=== PATIENT | female | born 1985 | race Caucasian/White ===

== ENCOUNTER 2017-09-01 11:54 | Inpatient (IN) | payer MEDICAID ==
[2017-09-01 12:56] LABS: ADD MAN DIFF? NO
[2017-09-01 12:58] LABS: WHITE BLOOD COUNT 6.5 10^3/ul (4.8-10.8)
[2017-09-01 12:58] LABS: ABNORMAL IP MESSAGE 1; BASOPHILS % 0.6 % (0.0-2.0); HEMATOCRIT 23.8 % (37.0-47.0); HEMOGLOBIN 7.7 g/dl (12.0-16.0); LYMPHOCYTES # 0.5 10^3/ul (0.8-2.9); LYMPHOCYTES % 7.4 % (15.0-51.0); MEAN CORPUSCULAR HEMOGLOBIN 27.7 pg (29.0-33.0); MEAN CORPUSCULAR HGB CONC 32.4 g/dl (32.0-37.0); MEAN CORPUSCULAR VOLUME 85.6 fl (82.0-101.0); MEAN PLATELET VOLUME 10.2 fl (7.4-10.4); MONOCYTE # 0.4 10^3/ul (0.3-0.9); NEUTROPHIL # 5.6 10^3/ul (1.6-7.5); NEUTROPHILS % 85.8 % (39.0-77.0); PLATELET COUNT 31 10^3/UL (140-415); RED BLOOD COUNT 2.78 10^6/ul (4.20-5.40); RED CELL DISTRIBUTION WIDTH 15.5 % (11.5-14.5)
[2017-09-01 13:03] LABS: POSITIVE DIFF @See below
[2017-09-01 13:12] LABS: PROTIME 16.4 Sec (11.9-14.9); PT RATIO 1.3
[2017-09-01] MEDS: morphine 10 MG INJ IV (13:12)
[2017-09-01] MEDS: ONDANSETRON 4 MG INJ IV (13:12)
[2017-09-01 13:13] LABS: PARTIAL THROMBOPLASTIN TIME 32.5 Sec (25.0-35.0)
[2017-09-01] MEDS: SOD CHLORIDE 0.9% 1,000 ML IV (13:13)
[2017-09-01] MEDS: FAMOTIDINE 20 MG INJ IV (13:17)
[2017-09-01 13:18] LABS: ALANINE AMINOTRANSFERASE 60 IU/L (13-69); ALBUMIN 4.3 g/dl (3.3-4.9); ALBUMIN/GLOBULIN RATIO 1.53; ALKALINE PHOSPHATASE 162 IU/L (42-121); ANION GAP 22 (8-16); ASPARTATE AMINO TRANSFERASE 104 IU/L (15-46); BILIRUBIN,INDIRECT 1.4 mg/dl (0-1.1); BILIRUBIN,TOTAL 1.4 mg/dl (0.2-1.3); BLOOD UREA NITROGEN 15 mg/dl (7-20); CALCIUM 8.5 mg/dl (8.4-10.2); CARBON DIOXIDE 26 mmol/L (21-31); CHLORIDE 92 mmol/L (97-110); CREATININE 0.43 mg/dl (0.44-1.00); GLUCOSE 92 mg/dl (70-220); POTASSIUM 3.7 mmol/L (3.5-5.1); SODIUM 136 mmol/L (135-144); TOTAL PROTEIN 7.1 g/dl (6.1-8.1)
[2017-09-01 13:27] LABS: TROPONIN-I < 0.012 ng/ml (0.00-0.12)
[2017-09-01] MEDS ORDERED: LIDOCAINE/MYLANTA 40 ML BTL PO (13:30)
[2017-09-01] MEDS ORDERED: METOCLOPRAMIDE 10 MG INJ IV (13:30)
[2017-09-01] MEDS: LORAZEPAM 2 MG INJ IV ×4 (13:52→22:25)
[2017-09-01] MEDS: SOD CHLORIDE 0.9% 250 ML IV (14:13)
[2017-09-01 14:59] LABS: IMMEDIATE SPIN CROSSMATCH 1 3
[2017-09-01] MEDS: ACETAMINOPHEN 325 MG TAB PO (15:19)
[2017-09-01] MEDS: PANTOPRAZOLE 40 MG INJ IV (15:21)
[2017-09-01] MEDS ORDERED: ONDANSETRON 4 MG INJ IV ×2 (15:30→16:00)
[2017-09-01 16:02] LABS: ADD UMIC YES; UR ASCORBIC ACID NEGATIVE (NEGATIVE); UR BILIRUBIN (Dip) 1+ mg/dL (NEGATIVE); UR BLOOD (Dip) NEGATIVE (NEGATIVE); UR CLARITY CLEAR (CLEAR); UR COLOR AMBER (YELLOW); UR GLUCOSE (Dip) NEGATIVE (NEGATIVE); UR KETONES (Dip) 1+ mg/dL (NEGATIVE); UR LEUKOCYTE ESTERASE (Dip) NEGATIVE Leu/ul (NEGATIVE); UR MUCUS MANY /HPF (NONE SEEN); UR NITRITE (Dip) NEGATIVE (NEGATIVE); UR RBC 2 /HPF (0-5); UR SPECIFIC GRAVITY (Dip) 1.027 (1.003-1.030); UR SQUAMOUS EPITHELIAL CELL FEW /HPF (FEW); UR TOTAL PROTEIN (Dip) 2+ mg/dl (NEGATIVE); UR UROBILINOGEN (Dip) 2+ mg/dL (NEGATIVE); UR WBC 4 /HPF (0-5)
[2017-09-01 16:25] LABS: CANNABINOIDS Negative (NEGATIVE)
[2017-09-01 16:36] LABS: AMPHETAMINE/METHAMPHETAMINE Negative (NEGATIVE); BARBITURATES Negative (NEGATIVE); BENZODIAZEPINES Negative (NEGATIVE); COCAINE Negative (NEGATIVE); OPIATES Positive (NEGATIVE)
[2017-09-01] MEDS: SOD CHLORIDE 0.9% 250 ML IV* (18:23)
[2017-09-01 18:29] LABS: HEMATOCRIT 22.7 % (37.0-47.0); HEMOGLOBIN 7.6 g/dl (12.0-16.0)
[2017-09-01] MEDS: CHLORDIAZEPOXIDE 25 MG CAP PO (22:25)
[2017-09-01] MEDS: PANTOPRAZOLE IV 80 MG in SOD CHLORIDE 0.9% 100 ML IV (22:42)
[2017-09-02] MEDS: traMADol 50 MG TAB PO (00:08)
[2017-09-02 00:50] LABS: HEMATOCRIT 24.7 % (37.0-47.0); HEMOGLOBIN 8.6 g/dl (12.0-16.0)
[2017-09-02] MEDS: FUROSEMIDE 20 MG INJ IV (01:27)
[2017-09-02] MEDS: PANTOPRAZOLE IV 80 MG in SOD CHLORIDE 0.9% 100 ML IV ×2 (01:30→13:16)
[2017-09-02] MEDS: LORAZEPAM 2 MG INJ IV ×6 (02:24→21:03)
[2017-09-02] MEDS: THIAMINE 100 MG TAB PO (08:43)
[2017-09-02] MEDS: VITAMIN B COMPLEX/VIT C CAP PO (08:43)
[2017-09-02] MEDS: CHLORDIAZEPOXIDE 25 MG CAP PO ×3 (08:43→20:56)
[2017-09-02] MEDS: morphine 2 MG INJ IV ×3 (10:45→20:04)
[2017-09-02 11:58] LABS: WHITE BLOOD COUNT 3.7 10^3/ul (4.8-10.8)
[2017-09-02 11:58] LABS: ABNORMAL IP MESSAGE 1; HEMATOCRIT 29.8 % (37.0-47.0); HEMOGLOBIN 10.1 g/dl (12.0-16.0); MEAN CORPUSCULAR HEMOGLOBIN 28.9 pg (29.0-33.0); MEAN CORPUSCULAR HGB CONC 33.9 g/dl (32.0-37.0); MEAN CORPUSCULAR VOLUME 85.4 fl (82.0-101.0); MEAN PLATELET VOLUME 11.9 fl (7.4-10.4); RED BLOOD COUNT 3.49 10^6/ul (4.20-5.40); RED CELL DISTRIBUTION WIDTH 14.6 % (11.5-14.5)
[2017-09-02 12:12] LABS: ADD MAN DIFF? YES; POSITIVE DIFF @See below
[2017-09-02 12:27] LABS: INR 1.28; PROTIME 16.2 Sec (11.9-14.9); PT RATIO 1.3
[2017-09-02 12:28] LABS: PARTIAL THROMBOPLASTIN TIME 31.3 Sec (25.0-35.0)
[2017-09-02 12:29] LABS: IRON 116 ug/dl (35-150)
[2017-09-02 12:29] LABS: AMMONIA 32 umol/l (9-30)
[2017-09-02 12:31] LABS: ALANINE AMINOTRANSFERASE 53 IU/L (13-69); ALBUMIN 3.3 g/dl (3.3-4.9); ALBUMIN/GLOBULIN RATIO 1.17; ALKALINE PHOSPHATASE 142 IU/L (42-121); ANION GAP 10 (8-16); ASPARTATE AMINO TRANSFERASE 114 IU/L (15-46); BILIRUBIN,INDIRECT 1.5 mg/dl (0-1.1); BILIRUBIN,TOTAL 1.5 mg/dl (0.2-1.3); BLOOD UREA NITROGEN 10 mg/dl (7-20); CALCIUM 8.5 mg/dl (8.4-10.2); CARBON DIOXIDE 29 mmol/L (21-31); CHLORIDE 99 mmol/L (97-110); CREATININE 0.64 mg/dl (0.44-1.00); GLUCOSE 95 mg/dl (70-220); POTASSIUM 3.4 mmol/L (3.5-5.1); SODIUM 135 mmol/L (135-144); TOTAL PROTEIN 6.1 g/dl (6.1-8.1)
[2017-09-02 12:32] LABS: MAGNESIUM 1.4 mg/dl (1.7-2.5)
[2017-09-02 12:32] LABS: PHOSPHORUS 3.6 mg/dl (2.5-4.9)
[2017-09-02 12:39] LABS: % IRON SATURATION 35 % SAT (22-52); TOTAL IRON BINDING CAPACITY 328 ug/dl (241-421)
[2017-09-02 12:53] LABS: ANISOCYTOSIS 2+ (0-0); BAND NEUTROPHILS #M 0.4 10^3/ul (0.0-0.6); BAND NEUTROPHILS % (M) 11 % (0-4); EOSINOPHILS % (M) 3 % (0-7); HYPOCHROMASIA 1+ (0-0); LYMPHOCYTES #M 0.5 10^3/ul (0.8-2.9); LYMPHOCYTES % (M) 16 % (15-51); MICROCYTOSIS 1+ (0-0); MONOCYTES % (M) 2 % (0-11); OVALOCYTES 1+ (0-0); PLATELET ESTIMATE DECREASED; POLYCHROMASIA 2+ (0-0); REACTIVE LYMPHOCYTES% (M) 1 % (0-0); ROULEAU 1+ (0-0); SEG NEUT #M 2.4 10^3/ul (1.7-7.5); SEGMENTED NEUTROPHILS (M) % 64 % (39-77); SMUDGE%M 4 % (0-0)
[2017-09-02 12:57] LABS: PLATELET COUNT 21 10^3/UL (140-415)
[2017-09-02 13:05] LABS: FERRITIN 30.3 ng/ml (6.2-137.0)
[2017-09-02] MEDS: POTASSIUM CHLORIDE 30 MEQ in DEXTROSE 5% 250 ML IVPB (15:01)
[2017-09-02] MEDS: MAGNESIUM SULFATE 3 GM in DEXTROSE 5% 100 ML IVPB (16:27)
[2017-09-02] MEDS: MIDAZOLAM 1 MG/ML 2 ML INJ (18:52)
[2017-09-02] MEDS: PROPOFOL 20 ML (18:52)
[2017-09-02] MEDS: LIDOCAINE 2% (SDV) 5 ML INJ (18:53)
[2017-09-02] MEDS: METOCLOPRAMIDE 10 MG TAB PO (19:00)
[2017-09-03] MEDS: PANTOPRAZOLE IV 80 MG in SOD CHLORIDE 0.9% 100 ML IV ×3 (00:44→17:30)
[2017-09-03] MEDS: morphine 4 MG/ML VIAL IV ×6 (00:44→19:48)
[2017-09-03 01:14] LABS: TYPE AND SCREEN 1
[2017-09-03] MEDS: LORAZEPAM 2 MG INJ IV ×6 (01:45→22:31)
[2017-09-03] MEDS: OCTREOTIDE 1 MG in DEXTROSE 5% 95 ML IV ×2 (03:10→17:56)
[2017-09-03] MEDS: METOCLOPRAMIDE 10 MG TAB PO ×4 (06:26→17:57)
[2017-09-03] MEDS: CHLORDIAZEPOXIDE 25 MG CAP PO ×2 (08:29→12:33)
[2017-09-03] MEDS: THIAMINE 100 MG TAB PO (08:29)
[2017-09-03 09:07] LABS: PATH REVIEW CH
[2017-09-03 09:19] LABS: ABNORMAL IP MESSAGE 1; HEMATOCRIT 29.8 % (37.0-47.0); HEMOGLOBIN 9.9 g/dl (12.0-16.0); MEAN CORPUSCULAR HEMOGLOBIN 29.3 pg (29.0-33.0); MEAN CORPUSCULAR HGB CONC 33.2 g/dl (32.0-37.0); MEAN CORPUSCULAR VOLUME 88.2 fl (82.0-101.0); MEAN PLATELET VOLUME 11.9 fl (7.4-10.4); PLATELET COUNT 40 10^3/UL (140-415); RED BLOOD COUNT 3.38 10^6/ul (4.20-5.40)
[2017-09-03 09:19] LABS: WHITE BLOOD COUNT 3.3 10^3/ul (4.8-10.8)
[2017-09-03 09:25] LABS: ADD MAN DIFF? YES; POSITIVE DIFF @See below
[2017-09-03 09:42] LABS: MAGNESIUM 1.9 mg/dl (1.7-2.5)
[2017-09-03 09:44] LABS: ALANINE AMINOTRANSFERASE 54 IU/L (13-69); ALBUMIN 3.3 g/dl (3.3-4.9); ALBUMIN/GLOBULIN RATIO 1.22; ALKALINE PHOSPHATASE 124 IU/L (42-121); ANION GAP 15 (8-16); ASPARTATE AMINO TRANSFERASE 99 IU/L (15-46); BILIRUBIN,INDIRECT 1.1 mg/dl (0-1.1); BILIRUBIN,TOTAL 1.1 mg/dl (0.2-1.3); BLOOD UREA NITROGEN 4 mg/dl (7-20); CALCIUM 8.1 mg/dl (8.4-10.2); CARBON DIOXIDE 26 mmol/L (21-31); CHLORIDE 100 mmol/L (97-110); CREATININE 0.52 mg/dl (0.44-1.00); GLUCOSE 124 mg/dl (70-220); SODIUM 137 mmol/L (135-144)
[2017-09-03] MEDS: VITAMIN B COMPLEX/VIT C CAP PO (10:10)
[2017-09-03 10:25] LABS: ANISOCYTOSIS 2+ (0-0); BAND NEUTROPHILS #M 0.2 10^3/ul (0.0-0.6); BAND NEUTROPHILS % (M) 7 % (0-4); BASOPHILS % (M) 2 % (0-2); EOSINOPHILS % (M) 3 % (0-7); ERYTHROBLAST% (NRBC) (M) 1 % (0-0); HYPOCHROMASIA 1+ (0-0); LYMPHOCYTES #M 0.9 10^3/ul (0.8-2.9); LYMPHOCYTES % (M) 28 % (15-51); MICROCYTOSIS 2+ (0-0); MONOCYTES % (M) 1 % (0-11); PLATELET ESTIMATE SIG DECREASED; POLYCHROMASIA 1+ (0-0); SEGMENTED NEUTROPHILS (M) % 59 % (39-77); SMUDGE%M 2 % (0-0)
[2017-09-03 15:15] LABS: HEMATOCRIT 30.7 % (37.0-47.0); HEMOGLOBIN 10.2 g/dl (12.0-16.0)
[2017-09-03 19:06] LABS: HEMATOCRIT 29.5 % (37.0-47.0); HEMOGLOBIN 9.9 g/dl (12.0-16.0)
[2017-09-03] MEDS: CHLORDIAZEPOXIDE 5 MG CAP PO (20:29)
[2017-09-04] MEDS: METOCLOPRAMIDE 10 MG TAB PO ×2 (00:17→05:09)
[2017-09-04] MEDS: PANTOPRAZOLE IV 80 MG in SOD CHLORIDE 0.9% 100 ML IV (00:17)
[2017-09-04 01:22] LABS: HEMATOCRIT 30.2 % (37.0-47.0); HEMOGLOBIN 9.8 g/dl (12.0-16.0)
[2017-09-04] MEDS: morphine 4 MG/ML VIAL IV (05:10)
[2017-09-04] MEDS: VITAMIN B COMPLEX/VIT C CAP PO (08:40)
[2017-09-04] MEDS: THIAMINE 100 MG TAB PO (08:40)
[2017-09-04] MEDS: CHLORDIAZEPOXIDE 5 MG CAP PO (08:40)
[2017-09-04] MEDS: LORAZEPAM 2 MG INJ IV (08:41)
[2017-09-04] MEDS: INFLUENZA VIRUS VACCINE 0.5 ML (DISPENSING) IM* (08:45)
[2017-09-04 08:54] LABS: ADD MAN DIFF? NO
[2017-09-04 09:05] LABS: WHITE BLOOD COUNT 4.1 10^3/ul (4.8-10.8)
[2017-09-04 09:05] LABS: ABNORMAL IP MESSAGE 1; BASOPHILS % 0.7 % (0.0-2.0); EOSINOPHILS # 0.1 10^3/ul (0.0-0.5); HEMATOCRIT 33.2 % (37.0-47.0); HEMOGLOBIN 10.7 g/dl (12.0-16.0); LYMPHOCYTES # 0.6 10^3/ul (0.8-2.9); LYMPHOCYTES % 13.8 % (15.0-51.0); MEAN CORPUSCULAR HGB CONC 32.2 g/dl (32.0-37.0); MONOCYTE # 0.2 10^3/ul (0.3-0.9); MONOCYTES % 5.2 % (0.0-11.0); NEUTROPHIL # 3.1 10^3/ul (1.6-7.5); NEUTROPHILS % 77.1 % (39.0-77.0); PLATELET COUNT 52 10^3/UL (140-415); RED BLOOD COUNT 3.69 10^6/ul (4.20-5.40); RED CELL DISTRIBUTION WIDTH 14.9 % (11.5-14.5)
[2017-09-04 09:20] LABS: POSITIVE DIFF @See below
[2017-09-04 09:29] LABS: ALANINE AMINOTRANSFERASE 60 IU/L (13-69); ALBUMIN 3.6 g/dl (3.3-4.9); ALBUMIN/GLOBULIN RATIO 1.28; ALKALINE PHOSPHATASE 114 IU/L (42-121); ANION GAP 14 (8-16); ASPARTATE AMINO TRANSFERASE 115 IU/L (15-46); BILIRUBIN,INDIRECT 0.8 mg/dl (0-1.1); BILIRUBIN,TOTAL 0.8 mg/dl (0.2-1.3); BLOOD UREA NITROGEN 7 mg/dl (7-20); CALCIUM 8.2 mg/dl (8.4-10.2); CARBON DIOXIDE 27 mmol/L (21-31); CHLORIDE 102 mmol/L (97-110); CREATININE 0.62 mg/dl (0.44-1.00); GLUCOSE 109 mg/dl (70-220); POTASSIUM 4.4 mmol/L (3.5-5.1); SODIUM 139 mmol/L (135-144); TOTAL PROTEIN 6.4 g/dl (6.1-8.1)
[2017-09-04 09:31] LABS: PHOSPHORUS 3.9 mg/dl (2.5-4.9)
[2017-09-04 09:31] LABS: MAGNESIUM 1.6 mg/dl (1.7-2.5)
== END 2017-09-04 11:00 | disposition home or self-care (01) | DRG 369 ==
LOC: MS4 09-03 00:32 → E/R 11:54 → PP2 15:09
PROC: 06L38CZ Occlusion of Esophageal Vein with Extraluminal Device, Via Natural or Artificial Opening Endoscopic (ICD-10-PCS; principal; 2017-09-02 17:50)
PROC: 30233R1 Transfusion of Nonautologous Platelets into Peripheral Vein, Percutaneous Approach (ICD-10-PCS; 2017-09-02 17:50)
PROC: 30233N1 Transfusion of Nonautologous Red Blood Cells into Peripheral Vein, Percutaneous Approach (ICD-10-PCS; 2017-09-02 17:50)
DX: I85.01 Esophageal varices with bleeding (principal); D62 Acute posthemorrhagic anemia; D69.6 Thrombocytopenia, unspecified; K92.0 Hematemesis; F10.20 Alcohol dependence, uncomplicated; K31.84 Gastroparesis; Z87.891 Personal history of nicotine dependence
CPT/HCPCS: 36415; 36430; 80053; 80307; 81001; 82140; 82728; 83540; 83735; 84100; 84484; 84703; 85014; 85018; 85025; 85610; 85730; 86644; 86850; 86900; 86901; 86920; 90686; 96365; 96375; 96376; 99291-25; J1940

== ENCOUNTER 2017-11-09 10:52 | Emergency (ER) | payer OTHER, MEDICAID ==
[2017-11-09] MEDS: PANTOPRAZOLE 40 MG INJ IV (11:45)
[2017-11-09] MEDS: ONDANSETRON 4 MG INJ IV (11:45)
[2017-11-09] MEDS: SOD CHLORIDE 0.9% 1,000 ML IV (11:45)
[2017-11-09] MEDS: morphine 4 MG/ML VIAL IV (11:45)
[2017-11-09] MEDS: LIDOCAINE/MYLANTA 40 ML BTL PO (11:46)
[2017-11-09 11:53] LABS: ADD MAN DIFF? NO
[2017-11-09 11:58] LABS: ABNORMAL IP MESSAGE 1; BASOPHILS % 0.2 % (0.0-2.0); EOSINOPHILS % 0.3 % (0.0-7.0); HEMATOCRIT 24.3 % (37.0-47.0); HEMOGLOBIN 8.4 g/dl (12.0-16.0); LYMPHOCYTES # 0.6 10^3/ul (0.8-2.9); LYMPHOCYTES % 5.1 % (15.0-51.0); MEAN CORPUSCULAR HGB CONC 34.6 g/dl (32.0-37.0); MEAN PLATELET VOLUME 9.8 fl (7.4-10.4); MONOCYTE # 0.4 10^3/ul (0.3-0.9); MONOCYTES % 3.3 % (0.0-11.0); NEUTROPHIL # 11.4 10^3/ul (1.6-7.5); NEUTROPHILS % 90.8 % (39.0-77.0); RED CELL DISTRIBUTION WIDTH 15.3 % (11.5-14.5)
[2017-11-09 11:58] LABS: WHITE BLOOD COUNT 12.6 10^3/ul (4.8-10.8)
[2017-11-09 12:11] LABS: PLATELET COUNT 69 10^3/UL (140-415); POSITIVE DIFF @See below
[2017-11-09] MEDS: LORAZEPAM 2 MG INJ IV (12:14)
[2017-11-09 12:19] LABS: ALANINE AMINOTRANSFERASE 67 IU/L (13-69); ALBUMIN 4.2 g/dl (3.3-4.9); ALKALINE PHOSPHATASE 99 IU/L (42-121); ANION GAP 23 (8-16); ASPARTATE AMINO TRANSFERASE 97 IU/L (15-46); BILIRUBIN,INDIRECT 1.5 mg/dl (0-1.1); BILIRUBIN,TOTAL 1.5 mg/dl (0.2-1.3); BLOOD UREA NITROGEN 21 mg/dl (7-20); CALCIUM 9.2 mg/dl (8.4-10.2); CARBON DIOXIDE 26 mmol/L (21-31); CHLORIDE 93 mmol/L (97-110); CREATININE 0.48 mg/dl (0.44-1.00); GLUCOSE 99 mg/dl (70-220); POTASSIUM 3.8 mmol/L (3.5-5.1); SODIUM 138 mmol/L (135-144); TOTAL PROTEIN 7.2 g/dl (6.1-8.1)
[2017-11-09 12:20] LABS: INR 1.39; PROTIME 17.3 Sec (11.9-14.9); PT RATIO 1.4
[2017-11-09 12:31] LABS: TROPONIN-I < 0.012 ng/ml (0.00-0.12)
== END 2017-11-09 14:34 | disposition home or self-care (01) ==
LOC: E/R 10:52
DX: K92.0 Hematemesis (principal); R10.13 Epigastric pain; F17.210 Nicotine dependence, cigarettes, uncomplicated
CPT/HCPCS: 36415; 80053; 84484; 85025; 85610; 85730; 86850; 86900; 86901; 93005; 96374; 96375; 99284-25

== ENCOUNTER 2017-12-24 12:15 | Inpatient (IN) | payer OTHER ==
[2017-12-24] MEDS: PANTOPRAZOLE IV 80 MG in SOD CHLORIDE 0.9% 100 ML IV (13:25)
[2017-12-24] MEDS: SOD CHLORIDE 0.9% 1,000 ML IV ×4 (13:57→16:28)
[2017-12-24] MEDS: LORAZEPAM 2 MG INJ IV (14:33)
[2017-12-24] MEDS: HYDROmorphONE 1 MG/5 ML IV SYRINGE IV (14:33)
[2017-12-24 14:39] LABS: ABNORMAL IP MESSAGE 1; HEMATOCRIT 16.1 % (37.0-47.0); MEAN CORPUSCULAR HEMOGLOBIN 21.8 pg (29.0-33.0); MEAN CORPUSCULAR HGB CONC 29.2 g/dl (32.0-37.0); MEAN CORPUSCULAR VOLUME 74.5 fl (82.0-101.0); MEAN PLATELET VOLUME 9.8 fl (7.4-10.4); PLATELET COUNT 189 10^3/UL (140-415); RED BLOOD COUNT 2.16 10^6/ul (4.20-5.40); RED CELL DISTRIBUTION WIDTH 21.6 % (11.5-14.5)
[2017-12-24 14:40] LABS: POSITIVE DIFF @See below
[2017-12-24 14:47] LABS: ADD MAN DIFF? YES; HEMOGLOBIN 4.7 g/dl (12.0-16.0)
[2017-12-24] MEDS: ONDANSETRON INJ 8 MG in DEXTROSE 5% 50 ML IVPB (14:55)
[2017-12-24] MEDS: PANTOPRAZOLE IV 80 MG in SOD CHLORIDE 0.9% 100 ML IVPB (15:07)
[2017-12-24 15:08] LABS: ALKALINE PHOSPHATASE 76 IU/L (42-121); ANION GAP 38 (8-16); BILIRUBIN,INDIRECT 1.1 mg/dl (0-1.1); BILIRUBIN,TOTAL 1.1 mg/dl (0.2-1.3); BLOOD UREA NITROGEN 21 mg/dl (7-20); CALCIUM 8.6 mg/dl (8.4-10.2); CARBON DIOXIDE 14 mmol/L (21-31); CHLORIDE 92 mmol/L (97-110); CREATININE 1.25 mg/dl (0.44-1.00); GLUCOSE 119 mg/dl (70-220); SODIUM 140 mmol/L (135-144); TOTAL PROTEIN 6.5 g/dl (6.1-8.1)
[2017-12-24 15:09] LABS: INR 1.88; PT RATIO 1.7
[2017-12-24 15:14] LABS: PARTIAL THROMBOPLASTIN TIME 29.6 Sec (25.0-35.0)
[2017-12-24 15:20] LABS: ALANINE AMINOTRANSFERASE 2011 IU/L (13-69)
[2017-12-24] MEDS ORDERED: ONDANSETRON 4 MG INJ IV ×2 (15:30→17:30)
[2017-12-24] MEDS ORDERED: ACETAMINOPHEN 325 MG TAB PO (15:30)
[2017-12-24 15:39] LABS: ANISOCYTOSIS 3+ (0-0); BAND NEUTROPHILS #M 1.8 10^3/ul (0.0-0.6); BAND NEUTROPHILS % (M) 9 % (0-4); EOSINOPHILS % (M) 4 % (0-7); HYPOCHROMASIA 3+ (0-0); LYMPHOCYTES #M 0.6 10^3/ul (0.8-2.9); LYMPHOCYTES % (M) 3 % (15-51); MICROCYTOSIS 3+ (0-0); OVALOCYTES 2+ (0-0); PLATELET ESTIMATE NORMAL; POIKILOCYTOSIS 1+ (0-0); POLYCHROMASIA 3+ (0-0); SEGMENTED NEUTROPHILS (M) % 84 % (39-77); SMUDGE%M 2 % (0-0)
[2017-12-24] MEDS: OCTREOTIDE 50 MCG in SOD CHLORIDE 0.9% 25 ML IVPB (16:15)
[2017-12-24] MEDS: OCTREOTIDE 500 MCG in SOD CHLORIDE 0.9% 49 ML IV (16:29)
[2017-12-24] MEDS ORDERED: LORAZEPAM 2 MG INJ IV ×3 (17:30)
[2017-12-24] MEDS ORDERED: LORAZEPAM 1 MG TAB PO (17:30)
[2017-12-24] MEDS ORDERED: METOCLOPRAMIDE 10 MG INJ IV (17:30)
[2017-12-24] MEDS ORDERED: ONDANSETRON 4 MG TAB PO (17:30)
[2017-12-24] MEDS: CHLORDIAZEPOXIDE 25 MG CAP PO (20:04)
[2017-12-24] MEDS: morphine 2 MG INJ IV (20:05)
[2017-12-24] MEDS ORDERED: PANTOPRAZOLE IV 80 MG in SOD CHLORIDE 0.9% 100 ML IV (20:30)
[2017-12-24] MEDS ORDERED: OCTREOTIDE 1 MG in DEXTROSE 5% 95 ML IV (20:30)
[2017-12-24] MEDS: PENTOXIFYLLINE (SR) 400 MG TAB PO (21:44)
[2017-12-25] MEDS: CHLORDIAZEPOXIDE 25 MG CAP PO ×5 (00:13→23:56)
[2017-12-25] MEDS: LORAZEPAM 1 MG TAB PO ×5 (00:13→20:01)
[2017-12-25 00:31] LABS: IMMEDIATE SPIN CROSSMATCH 1 4
[2017-12-25] MEDS: PANTOPRAZOLE IV 80 MG in SOD CHLORIDE 0.9% 100 ML IV ×2 (00:48→11:15)
[2017-12-25] MEDS: OCTREOTIDE 1 MG in DEXTROSE 5% 95 ML IV (01:56)
[2017-12-25 06:49] LABS: INR 1.73; PROTIME 20.6 Sec (11.9-14.9); PT RATIO 1.6
[2017-12-25 07:29] LABS: ABNORMAL IP MESSAGE 1; HEMATOCRIT 23.9 % (37.0-47.0); MEAN CORPUSCULAR HEMOGLOBIN 26.6 pg (29.0-33.0); MEAN CORPUSCULAR HGB CONC 33.5 g/dl (32.0-37.0); MEAN CORPUSCULAR VOLUME 79.4 fl (82.0-101.0); MEAN PLATELET VOLUME 10.1 fl (7.4-10.4); PLATELET COUNT 47 10^3/UL (140-415); RED BLOOD COUNT 3.01 10^6/ul (4.20-5.40); RED CELL DISTRIBUTION WIDTH 20.3 % (11.5-14.5)
[2017-12-25 07:29] LABS: WHITE BLOOD COUNT 7.4 10^3/ul (4.8-10.8)
[2017-12-25 07:30] LABS: ALBUMIN 2.7 g/dl (3.3-4.9); ALBUMIN/GLOBULIN RATIO 1.12; ALKALINE PHOSPHATASE 55 IU/L (42-121); ANION GAP 12 (8-16); BILIRUBIN,INDIRECT 1.5 mg/dl (0-1.1); BILIRUBIN,TOTAL 1.5 mg/dl (0.2-1.3); BLOOD UREA NITROGEN 31 mg/dl (7-20); CALCIUM 6.8 mg/dl (8.4-10.2); CARBON DIOXIDE 29 mmol/L (21-31); CHLORIDE 101 mmol/L (97-110); CREATININE 1.06 mg/dl (0.44-1.00); GLUCOSE 106 mg/dl (70-220); POTASSIUM 3.9 mmol/L (3.5-5.1); SODIUM 138 mmol/L (135-144); TOTAL PROTEIN 5.1 g/dl (6.1-8.1)
[2017-12-25 07:40] LABS: POSITIVE DIFF @See below
[2017-12-25 07:41] LABS: ADD MAN DIFF? YES
[2017-12-25] MEDS: PENTOXIFYLLINE (SR) 400 MG TAB PO ×3 (07:49→17:40)
[2017-12-25 08:25] LABS: ANISOCYTOSIS 2+ (0-0); BAND NEUTROPHILS #M 1.4 10^3/ul (0.0-0.6); BAND NEUTROPHILS % (M) 20 % (0-4); LYMPHOCYTES #M 1.2 10^3/ul (0.8-2.9); LYMPHOCYTES % (M) 17 % (15-51); MICROCYTOSIS 2+ (0-0); MONOCYTES % (M) 1 % (0-11); PLATELET ESTIMATE DECREASED; POLYCHROMASIA 3+ (0-0); SEG NEUT #M 4.7 10^3/ul (1.6-7.5); SEGMENTED NEUTROPHILS (M) % 62 % (39-77); SMUDGE%M 7 % (0-0)
[2017-12-25] MEDS: MULTIVITAMINS THERAPEUTIC TAB PO (08:45)
[2017-12-25] MEDS: FOLIC ACID 1 MG TAB PO (08:45)
[2017-12-25] MEDS: THIAMINE 200 MG INJ IM (08:50)
[2017-12-25] MEDS: morphine 2 MG INJ IV (20:01)
[2017-12-25] MEDS: EPHEDrine SULFATE 50 MG/5 ML SYG (21:23)
[2017-12-25] MEDS: PROPOFOL 20 ML (21:23)
[2017-12-25] MEDS: PROPOFOL 40 ML (21:24)
[2017-12-25] MEDS: HYDROmorphONE 0.5 MG/0.5 ML SYG IV (21:30)
[2017-12-26] MEDS: morphine 2 MG INJ IV ×3 (01:31→09:50)
[2017-12-26] MEDS: CHLORDIAZEPOXIDE 25 MG CAP PO (05:48)
[2017-12-26 06:40] LABS: ADD MAN DIFF? NO
[2017-12-26 06:49] LABS: ABNORMAL IP MESSAGE 1; BASOPHILS % 0.7 % (0.0-2.0); EOSINOPHILS # 0.1 10^3/ul (0.0-0.5); EOSINOPHILS % 2.3 % (0.0-7.0); HEMATOCRIT 27.9 % (37.0-47.0); HEMOGLOBIN 9.2 g/dl (12.0-16.0); LYMPHOCYTES # 0.9 10^3/ul (0.8-2.9); LYMPHOCYTES % 16.3 % (15.0-51.0); MEAN CORPUSCULAR HEMOGLOBIN 27.1 pg (29.0-33.0); MEAN CORPUSCULAR VOLUME 82.1 fl (82.0-101.0); MEAN PLATELET VOLUME 10.9 fl (7.4-10.4); MONOCYTE # 0.1 10^3/ul (0.3-0.9); MONOCYTES % 2.1 % (0.0-11.0); NEUTROPHIL # 4.4 10^3/ul (1.6-7.5); NEUTROPHILS % 78.2 % (39.0-77.0); PLATELET COUNT 43 10^3/UL (140-415); RED CELL DISTRIBUTION WIDTH 20.2 % (11.5-14.5)
[2017-12-26 06:49] LABS: WHITE BLOOD COUNT 5.7 10^3/ul (4.8-10.8)
[2017-12-26 07:04] LABS: ALBUMIN 2.8 g/dl (3.3-4.9); ALBUMIN/GLOBULIN RATIO 1.07; ALKALINE PHOSPHATASE 65 IU/L (42-121); ANION GAP 10 (8-16); BILIRUBIN,INDIRECT 1.1 mg/dl (0-1.1); BILIRUBIN,TOTAL 1.1 mg/dl (0.2-1.3); BLOOD UREA NITROGEN 17 mg/dl (7-20); CALCIUM 7.6 mg/dl (8.4-10.2); CARBON DIOXIDE 28 mmol/L (21-31); CHLORIDE 107 mmol/L (97-110); GLUCOSE 81 mg/dl (70-220); POTASSIUM 3.7 mmol/L (3.5-5.1); SODIUM 141 mmol/L (135-144); TOTAL PROTEIN 5.4 g/dl (6.1-8.1)
[2017-12-26 07:15] LABS: POSITIVE DIFF @See below
[2017-12-26 07:50] LABS: ALANINE AMINOTRANSFERASE 1440 IU/L (13-69)
[2017-12-26 08:19] LABS: ASPARTATE AMINO TRANSFERASE 1933 IU/L (15-46)
[2017-12-26 08:20] LABS: ALANINE AMINOTRANSFERASE 1493 IU/L (13-69)
[2017-12-26] MEDS: PENTOXIFYLLINE (SR) 400 MG TAB PO (09:48)
[2017-12-26] MEDS: FOLIC ACID 1 MG TAB PO (09:48)
[2017-12-26] MEDS: MULTIVITAMINS THERAPEUTIC TAB PO (09:49)
[2017-12-26] MEDS: LORAZEPAM 1 MG TAB PO (10:40)
[2017-12-26] MEDS ORDERED: PANTOPRAZOLE (EC) 40 MG TAB PO (18:00)
== END 2017-12-26 12:08 | disposition home or self-care (01) | DRG 378 ==
LOC: MS4 12-25 20:30 → E/R 12:15 → ICU 15:09
PROVIDERS: Pediatrics Neonatal-Perinatal Medicine
PROC: 0DJ08ZZ Inspection of Upper Intestinal Tract, Via Natural or Artificial Opening Endoscopic (ICD-10-PCS; principal; 2017-12-25 15:00)
PROC: 30233N1 Transfusion of Nonautologous Red Blood Cells into Peripheral Vein, Percutaneous Approach (ICD-10-PCS; 2017-12-25 15:00)
DX: K92.0 Hematemesis (principal); F10.239 Alcohol dependence with withdrawal, unspecified; K70.10 Alcoholic hepatitis without ascites; I85.00 Esophageal varices without bleeding; D50.0 Iron deficiency anemia secondary to blood loss (chronic)
CPT/HCPCS: 36415; 36430; 71045; 76700; 80053; 80306; 85025; 85610; 85730; 86644; 86850; 86900; 86901; 86920; 87081; 93005; 96374; 96375; 96376; 99291-25

== ENCOUNTER 2017-12-28 07:28 | Emergency (ER) | payer OTHER ==
[2017-12-28] MEDS: ONDANSETRON 4 MG INJ IV (09:01)
[2017-12-28] MEDS: morphine 4 MG/ML VIAL IV (09:01)
[2017-12-28 09:05] LABS: ADD MAN DIFF? NO
[2017-12-28 09:09] LABS: ABNORMAL IP MESSAGE 1; BASOPHILS % 0.6 % (0.0-2.0); EOSINOPHILS # 0.1 10^3/ul (0.0-0.5); EOSINOPHILS % 2.2 % (0.0-7.0); HEMATOCRIT 26.5 % (37.0-47.0); HEMOGLOBIN 8.5 g/dl (12.0-16.0); LYMPHOCYTES # 0.6 10^3/ul (0.8-2.9); LYMPHOCYTES % 18.6 % (15.0-51.0); MEAN CORPUSCULAR HEMOGLOBIN 26.4 pg (29.0-33.0); MEAN CORPUSCULAR HGB CONC 32.1 g/dl (32.0-37.0); MEAN CORPUSCULAR VOLUME 82.3 fl (82.0-101.0); MEAN PLATELET VOLUME 9.5 fl (7.4-10.4); MONOCYTE # 0.4 10^3/ul (0.3-0.9); MONOCYTES % 12.6 % (0.0-11.0); NEUTROPHIL # 2.1 10^3/ul (1.6-7.5); NEUTROPHILS % 65.7 % (39.0-77.0); PLATELET COUNT 50 10^3/UL (140-415); RED BLOOD COUNT 3.22 10^6/ul (4.20-5.40); RED CELL DISTRIBUTION WIDTH 22.1 % (11.5-14.5)
[2017-12-28 09:09] LABS: WHITE BLOOD COUNT 3.2 10^3/ul (4.8-10.8)
[2017-12-28 09:10] LABS: POSITIVE DIFF @See below
[2017-12-28] MEDS: LORAZEPAM 2 MG INJ IV (09:19)
[2017-12-28 09:29] LABS: ANION GAP 15 (8-16); BLOOD UREA NITROGEN 6 mg/dl (7-20); CALCIUM 8.7 mg/dl (8.4-10.2); CARBON DIOXIDE 28 mmol/L (21-31); CHLORIDE 103 mmol/L (97-110); CREATININE 0.55 mg/dl (0.44-1.00); GLUCOSE 85 mg/dl (70-220); POTASSIUM 3.2 mmol/L (3.5-5.1); SODIUM 143 mmol/L (135-144)
[2017-12-28 09:40] LABS: TROPONIN-I < 0.012 ng/ml (0.00-0.12)
== END 2017-12-28 10:23 | disposition home or self-care (01) ==
LOC: E/R 07:28
DX: R11.2 Nausea with vomiting, unspecified (principal); K22.4 Dyskinesia of esophagus; F17.210 Nicotine dependence, cigarettes, uncomplicated
CPT/HCPCS: 36415; 71045; 80048; 84484; 85025; 93005; 96374; 96375; 99284-25

== ENCOUNTER 2018-02-10 19:34 | Inpatient (IN) | payer OTHER ==
[2018-02-11 01:04] LABS: ADD MAN DIFF? NO
[2018-02-11 01:06] LABS: WHITE BLOOD COUNT 6.6 10^3/ul (4.8-10.8)
[2018-02-11 01:06] LABS: BASOPHIL # 0.1 10^3/ul (0.0-0.1); BASOPHILS % 1.8 % (0.0-2.0); EOSINOPHILS # 0.1 10^3/ul (0.0-0.5); EOSINOPHILS % 1.2 % (0.0-7.0); HEMATOCRIT 32.9 % (37.0-47.0); HEMOGLOBIN 10.5 g/dl (12.0-16.0); LYMPHOCYTES # 1.8 10^3/ul (0.8-2.9); LYMPHOCYTES % 26.8 % (15.0-51.0); MEAN CORPUSCULAR HEMOGLOBIN 25.1 pg (29.0-33.0); MEAN CORPUSCULAR HGB CONC 31.9 g/dl (32.0-37.0); MEAN CORPUSCULAR VOLUME 78.7 fl (82.0-101.0); MEAN PLATELET VOLUME 9.1 fl (7.4-10.4); MONOCYTE # 0.5 10^3/ul (0.3-0.9); MONOCYTES % 7.3 % (0.0-11.0); NEUTROPHIL # 4.1 10^3/ul (1.6-7.5); NEUTROPHILS % 62.6 % (39.0-77.0); PLATELET COUNT 182 10^3/UL (140-415); RED BLOOD COUNT 4.18 10^6/ul (4.20-5.40); RED CELL DISTRIBUTION WIDTH 20.9 % (11.5-14.5)
[2018-02-11] MEDS: SOD CHLORIDE 0.9% 1,000 ML IV (01:14)
[2018-02-11] MEDS: CEFTRIAXONE 1 GM/50 ML (PMX) 50 ML IVPB (01:14)
[2018-02-11] MEDS: ONDANSETRON 4 MG INJ IV ×2 (01:18→12:20)
[2018-02-11] MEDS: morphine 4 MG/ML VIAL IV (01:20)
[2018-02-11 01:31] LABS: ALANINE AMINOTRANSFERASE 74 IU/L (13-69); ALBUMIN 4.7 g/dl (3.3-4.9); ALKALINE PHOSPHATASE 116 IU/L (42-121); ANION GAP 18 (8-16); ASPARTATE AMINO TRANSFERASE 72 IU/L (15-46); BILIRUBIN,INDIRECT 0.5 mg/dl (0-1.1); BILIRUBIN,TOTAL 0.5 mg/dl (0.2-1.3); BLOOD UREA NITROGEN 8 mg/dl (7-20); CALCIUM 8.9 mg/dl (8.4-10.2); CARBON DIOXIDE 27 mmol/L (21-31); CHLORIDE 105 mmol/L (97-110); CREATININE 0.56 mg/dl (0.44-1.00); GLUCOSE 97 mg/dl (70-220); LIPASE 260 U/L (23-300); POTASSIUM 3.6 mmol/L (3.5-5.1); SODIUM 146 mmol/L (135-144); TOTAL PROTEIN 8.3 g/dl (6.1-8.1)
[2018-02-11 01:38] LABS: INR 1.12; PROTIME 14.6 Sec (11.9-14.9); PT RATIO 1.1
[2018-02-11 01:39] LABS: PARTIAL THROMBOPLASTIN TIME 32.3 Sec (25.0-35.0)
[2018-02-11 01:47] LABS: TROPONIN-I < 0.012 ng/ml (0.000-0.120)
[2018-02-11] MEDS: LORAZEPAM 2 MG INJ IV ×2 (02:11→06:52)
[2018-02-11] MEDS: OCTREOTIDE 50 MCG in SOD CHLORIDE 0.9% 25 ML IVPB (02:12)
[2018-02-11] MEDS: PANTOPRAZOLE IV 80 MG in SOD CHLORIDE 0.9% 100 ML IV (02:12)
[2018-02-11] MEDS: OCTREOTIDE 500 MCG in SOD CHLORIDE 0.9% 49 ML IV (02:12)
[2018-02-11] MEDS: PANTOPRAZOLE IV 80 MG in SOD CHLORIDE 0.9% 100 ML IVPB (02:12)
[2018-02-11] MEDS: morphine 2 MG INJ IV ×3 (05:52→16:35)
[2018-02-11 07:03] LABS: ADD MAN DIFF? NO
[2018-02-11 07:11] LABS: BASOPHIL # 0.1 10^3/ul (0.0-0.1); EOSINOPHILS # 0.1 10^3/ul (0.0-0.5); EOSINOPHILS % 2.2 % (0.0-7.0); HEMATOCRIT 26.5 % (37.0-47.0); HEMOGLOBIN 8.3 g/dl (12.0-16.0); LYMPHOCYTES # 1.1 10^3/ul (0.8-2.9); LYMPHOCYTES % 27.2 % (15.0-51.0); MEAN CORPUSCULAR HEMOGLOBIN 24.9 pg (29.0-33.0); MEAN CORPUSCULAR HGB CONC 31.3 g/dl (32.0-37.0); MEAN CORPUSCULAR VOLUME 79.6 fl (82.0-101.0); MEAN PLATELET VOLUME 9.7 fl (7.4-10.4); MONOCYTE # 0.3 10^3/ul (0.3-0.9); MONOCYTES % 7.7 % (0.0-11.0); NEUTROPHIL # 2.5 10^3/ul (1.6-7.5); NEUTROPHILS % 60.7 % (39.0-77.0); PLATELET COUNT 128 10^3/UL (140-415); RED BLOOD COUNT 3.33 10^6/ul (4.20-5.40); RED CELL DISTRIBUTION WIDTH 21.1 % (11.5-14.5)
[2018-02-11 07:11] LABS: WHITE BLOOD COUNT 4.1 10^3/ul (4.8-10.8)
[2018-02-11 07:36] LABS: ANION GAP 16 (8-16); BLOOD UREA NITROGEN 7 mg/dl (7-20); CALCIUM 7.8 mg/dl (8.4-10.2); CARBON DIOXIDE 23 mmol/L (21-31); CHLORIDE 107 mmol/L (97-110); CREATININE 0.51 mg/dl (0.44-1.00); GLUCOSE 142 mg/dl (70-220); PHOSPHORUS 4.1 mg/dl (2.5-4.9); POTASSIUM 3.9 mmol/L (3.5-5.1); SODIUM 142 mmol/L (135-144)
[2018-02-11] MEDS: DEXTROSE 5%-0.45% NACL 1,000 ML IV ×2 (08:17→17:47)
[2018-02-11] MEDS: FOLIC ACID 1 MG TAB PO (13:10)
[2018-02-11] MEDS: LORAZEPAM 1 MG TAB PO (13:11)
[2018-02-11] MEDS: THIAMINE 100 MG TAB PO (13:11)
[2018-02-11] MEDS: MAGNESIUM SULFATE 4 GM/100 ML 100 ML IVPB (15:07)
[2018-02-11] MEDS: PANTOPRAZOLE 40 MG INJ IV (17:44)
== END 2018-02-11 20:00 | disposition left against medical advice (07) | DRG 432 ==
LOC: E/R 19:34 → TEL 02-11 01:24
DX: K70.30 Alcoholic cirrhosis of liver without ascites (principal); I85.11 Secondary esophageal varices with bleeding; D62 Acute posthemorrhagic anemia; F10.10 Alcohol abuse, uncomplicated; Z87.891 Personal history of nicotine dependence; D50.0 Iron deficiency anemia secondary to blood loss (chronic)
CPT/HCPCS: 36415; 71045; 80048; 80053; 81025; 83690; 83735; 84100; 84484; 85025; 85610; 85730; 86850; 86900; 86901; 93005; 96374; 96375; 96376; 99291-25